=== PATIENT | male | born 1995 | race African-American/Black ===

== ENCOUNTER 2019-01-03 02:14 | Emergency (ER) | payer OTHER ==
[~2019-01-03] VITALS: Ht 185.4 cm; Wt 65.0 kg
--- NOTE | 2019-01-03 03:35 | REPVR ---
PROCEDURE INFORMATION: Exam: CT Maxillofacial Without Contrast Exam date and time: 01/03/2019 2:41 AM Clinical history: 23 years old, male; Injury or trauma; Fall; Initial encounter; Blunt trauma (contusions or hematomas); Orbit/periorbital; Left; Additional info: Tr TECHNIQUE: Imaging protocol: Computed tomography images of the face without contrast. Radiation optimization: All CT scans at this facility use at least one of these dose optimization techniques: automated exposure control; mA and/or kV adjustment per patient size (includes targeted exams where dose is matched to clinical indication); or iterative reconstruction. COMPARISON: No relevant prior studies available. FINDINGS: Orbits: Orbits are normal. Globes are unremarkable. Sinuses: Very minimal bilateral maxillary sinus mucosal thickening. Bones/joints: Slightly offset left nasal bone fracture. Soft tissues: Slight soft tissue swelling along the lateral aspect of the left orbit with laceration. Minimal gas along the left inferior orbital rim with slight soft tissue swelling. Slight soft tissue swelling of the left aspect of the nose. IMPRESSION: 1. Mild soft tissue swelling of the left aspect of the nose and slight soft tissue swelling of the inferior lateral aspect of the left orbit. 2. Laceration along the lateral aspect of the left orbit and minimal gas extending along the inferior aspect of the left orbit consistent with laceration and/or puncture wound. 3. Slightly displaced fracture of the left nasal bones. 4. Very minimal bilateral maxillary sinus disease. Electronically signed by: Nicola Zuniga On 01/03/2019 03:34:49 AM
--- NOTE | 2019-01-03 03:36 | REPVR ---
PROCEDURE INFORMATION: Exam: CT Cervical Spine Without Contrast Exam date and time: 01/03/2019 2:41 AM Clinical history: 23 years old, male; Injury or trauma; Fall; Initial encounter; Blunt trauma; Additional info: Fall hitting face TECHNIQUE: Imaging protocol: Computed tomography images of the cervical spine without contrast. Radiation optimization: All CT scans at this facility use at least one of these dose optimization techniques: automated exposure control; mA and/or kV adjustment per patient size (includes targeted exams where dose is matched to clinical indication); or iterative reconstruction. COMPARISON: No relevant prior studies available. FINDINGS: Vertebrae: No acute fracture. Normal alignment. Discs/Spinal canal/Neural foramina: No spinal stenosis. No neural foraminal narrowing. Soft tissues: Unremarkable. Lungs: Lung apices are normal. IMPRESSION: Negative CT cervical spine. No fracture or subluxation is evident and no spinal or foraminal stenosis. Electronically signed by: Nicola Zuniga On 01/03/2019 03:36:36 AM
--- NOTE | 2019-01-03 03:38 | REPVR ---
PROCEDURE INFORMATION: Exam: CT Head Without Contrast Exam date and time: 01/03/2019 2:41 AM Clinical history: 23 years old, male; Injury or trauma; Fall; Initial encounter; Blunt trauma (contusions or hematomas); Consciousness not specified; Additional info: Fall hitting face TECHNIQUE: Imaging protocol: Computed tomography of the head without contrast. Radiation optimization: All CT scans at this facility use at least one of these dose optimization techniques: automated exposure control; mA and/or kV adjustment per patient size (includes targeted exams where dose is matched to clinical indication); or iterative reconstruction. COMPARISON: No relevant prior studies available. FINDINGS: Brain: Normal. No hemorrhage. Unremarkable white matter. No mass effect. Ventricles: Normal. No ventriculomegaly. Bones/joints: Unremarkable. No acute fracture. Sinuses: Visualized sinuses are unremarkable. No fluid levels. Mastoid air cells: Visualized mastoid air cells are well aerated. Soft tissues: Laceration along the lateral aspect of the left orbit with slight soft tissue swelling. IMPRESSION: 1. Laceration or wound along the lateral aspect of the left orbit. 2. Otherwise negative noncontrast head CT. Electronically signed by: Nicola Zuniga On 01/03/2019 03:38:16 AM
[2019-01-03] MEDS ORDERED: LIDOCAINE W/EPINEPHRINE 1% 20ML VIAL SC ONE (04:00)
[2019-01-03 04:30] VITALS: BP 128/71
== END 2019-01-03 04:32 | disposition home or self-care (01) ==
LOC: M ED 02:14
DX: S02.2XXA Fracture of nasal bones, initial encounter for closed fracture (principal); S01.412A Laceration without foreign body of left cheek and temporomandibular area, initial encounter; W19.XXXA Unspecified fall, initial encounter; Y92.89 Other specified places as the place of occurrence of the external cause; Y93.9 Activity, unspecified; Y99.9 Unspecified external cause status

== ENCOUNTER 2019-07-25 12:32 | Emergency (ER) | payer OTHER ==
[~2019-07-25] VITALS: Ht 185.4 cm; Wt 68.6 kg
[2019-07-25 12:33] VITALS: BP 119/57
[2019-07-25] MEDS ORDERED: MAPA500T2 PO (12:42)
[2019-07-25] MEDS ORDERED: MAGIC MOUTHWASH SUSPENSION BTL SS STA (12:56)
[2019-07-25] MEDS ORDERED: AMOXICILLIN 500 MG CAP PO ONE (13:00)
[2019-07-25] MEDS ORDERED: IBUPROFEN 800 MG TAB PO ONE (13:00)
[2019-07-25] MEDS ORDERED: AMOX500C PO (13:34)
[2019-07-25] MEDS ORDERED: MAGICMW SSP (13:34)
[2019-07-26] MEDS ORDERED: PRED20TA PO (21:38)
== END 2019-07-25 13:39 | disposition home or self-care (01) ==
LOC: M ED 12:32
DX: J02.0 Streptococcal pharyngitis (principal); R51 Headache

== ENCOUNTER 2019-07-26 17:25 | Emergency (ER) | payer OTHER ==
[~2019-07-26] VITALS: Ht 185.4 cm; Wt 67.6 kg
[~2019-07-26 17:25] MED LIST: AMOX500C PO; MAGICMW SSP; MAPA500T2 PO
[2019-07-26] MEDS ORDERED: NS 1,000 ML IV ONE (18:00)
[2019-07-26] MEDS ORDERED: ONDANSETRON 4MG/2ML VIAL IV ONE (18:00)
[2019-07-26 18:29] LABS: BASO % 0.1 % (0.0-1.0); HEMATOCRIT 38.6 % (42.0-52.0); HEMOGLOBIN 12.7 g/dl (13.5-17.5); LYMPH % 7.6 % (24.0-44.0); MEAN CORPUSCULAR HEMOGLOBIN 27.9 pg (27.0-33.0); MEAN CORPUSCULAR HGB CONC 32.9 g/dl (32.0-36.5); MEAN CORPUSCULAR VOLUME 84.6 fl (80.0-96.0); MONO # 2.4 10^3/uL (0.0-0.8); MONO % 18.2 % (0.0-5.0); NEUTROPHILS # 9.9 10^3/uL (1.5-8.5); NEUTROPHILS % 73.7 % (36.0-66.0); PLATELET COUNT, AUTOMATED 200 10^3/uL (150-450); RED BLOOD COUNT 4.56 10^6/uL (4.30-6.10); WHITE BLOOD COUNT 13.4 10^3/uL (4.0-10.0)
[2019-07-26] MEDS ORDERED: dexameTHASONE 20MG/5ML VIAL (J1100 PER 1MG) IV ONE (18:30)
[2019-07-26 18:49] LABS: ERYTHROCYTE SEDIMENTATION RATE 40 mm/hr (0-15)
[2019-07-26 19:01] LABS: ALBUMIN 3.3 GM/DL (3.2-5.2); ALT/SGPT 19 U/L (12-78); BILIRUBIN,DIRECT 0.3 MG/DL (0.0-0.2); BLOOD UREA NITROGEN 13 MG/DL (7-18); CALCIUM LEVEL 8.5 MG/DL (8.5-10.1); CARBON DIOXIDE LEVEL 28 MEQ/L (21-32); CHLORIDE LEVEL 97 MEQ/L (98-107); CREATININE FOR GFR 1.29 MG/DL (0.70-1.30); GLOMERULAR FILTRATION RATE > 60.0 (>60); GLUCOSE, FASTING 92 MG/DL (70-100); LIPASE 100 U/L (73-393); POTASSIUM SERUM 3.9 MEQ/L (3.5-5.1); SODIUM LEVEL 134 MEQ/L (136-145); TOTAL PROTEIN 7.6 GM/DL (6.4-8.2)
[2019-07-26 19:04] LABS: MONO REFLEX EBV COMP NEGATIVE (NEGATIVE)
[2019-07-26] MEDS ORDERED: ISOVUE-370 76% 100ML VIAL As Ordered ONE (19:28)
--- NOTE | 2019-07-26 19:50 | REPVR ---
PROCEDURE INFORMATION: Exam: CT Neck With Contrast Exam date and time: 07/26/2019 7:38 PM Age: 23 years old Clinical indication: Mass, lump, or swelling in neck; Additional info: Severely swollen tonsills, swelling down into neck TECHNIQUE: Imaging protocol: Computed tomography images of the neck with intravenous contrast. Radiation optimization: All CT scans at this facility use at least one of these dose optimization techniques: automated exposure control; mA and/or kV adjustment per patient size (includes targeted exams where dose is matched to clinical indication); or iterative reconstruction. Contrast material: ISOVUE 370; Contrast volume: 75 ml; Contrast route: IV; COMPARISON: CT Spine,cervical w/o contrast 01/03/2019 2:40 AM FINDINGS: Nasopharynx: Nasopharyngeal and oropharyngeal mucosal enhancement. Oropharynx: There is enlargement and enhancement involving the bilateral palatine tonsils. Hypopharynx: Unremarkable. Larynx: Unremarkable. Normal epiglottis. Retropharyngeal space: Unremarkable. Submandibular/Parotid glands: Normal. Glands are normal in size. Thyroid: Normal. No enlarged or calcified nodules. Lymph nodes: Mild cervical lymphadenopathy, likely reactive. Trachea: Visualized trachea is unremarkable. Lungs: Mild scarring at the lung apices. Bones/joints: Unremarkable. No acute fracture. Soft tissues: No drainable fluid collection. IMPRESSION: 1. Findings compatible tonsillitis and pharyngitis. 2. No drainable fluid collection. Electronically signed by: Ibrahima Linder On 07/26/2019 19:49:41 PM
[2019-07-26] MEDS ORDERED: KETOROLAC 30 MG/ML 1ML VIAL IV ONE (20:00)
[2019-07-26] MEDS ORDERED: CLINDAMYCIN 900 MG in IV 1 EA IV ONE (21:00)
[2019-07-26] MEDS ORDERED: ACETAMINOPHEN 500 MG TAB PO ONE (21:00)
--- NOTE | 2019-07-26 21:09 | REPVR ---
PROCEDURE INFORMATION: Exam: US Abdomen Complete Exam date and time: 07/26/2019 8:43 PM Age: 23 years old Clinical indication: Nausea and vomiting; Additional info: Hepatosplenomegaly, n/v TECHNIQUE: Imaging protocol: Real-time ultrasound of the abdomen with image documentation. COMPARISON: No relevant prior studies available. FINDINGS: Liver: No focal abnormality involving the liver. The liver is not discretely measured. Gallbladder: Gallbladder is partially contracted. No definite calculi or pathologic thickening. Common bile duct: Common bile duct is normal caliber. Pancreas: No focal abnormality involving the visualized portions of the pancreas. Right kidney: Normal. No mass. No hydronephrosis. Left kidney: Normal. No mass. No hydronephrosis. Spleen: Spleen measures up to 9.2 centimetres. No focal abnormality involving the spleen. Aorta: Visualized abdominal aorta is nonaneurysmal. Inferior vena cava: Normal. IMPRESSION: Unremarkable abdominal ultrasound. Electronically signed by: Ibrahima Linder On 07/26/2019 21:08:50 PM
[2019-07-26 21:10] VITALS: BP 121/58
[2019-07-26] MEDS ORDERED: PRED20TA PO (21:38)
--- NOTE | 2019-07-27 10:13 | REP ---
Clinical: Hemoptysis . Comparison: None . Technique: PA and lateral. Findings: The mediastinum and cardiac silhouette are normal. The lung goodwin are clear and without acute consolidation, effusion, or pneumothorax. The skeletal structures are intact and normal. Impression: 1. No acute cardiopulmonary process. Electronically Signed by Milton Jenkins MD 07/27/2019 10:04 A
[2019-07-29 16:07] LABS: EBV AB TO NUCLEAR ANTIGEN >600.0 U/mL (0.0-17.9); EBV VIRAL CAPSID AG IgG 77.2 U/mL (0.0-17.9); EBV VIRAL CAPSID AG IgM <36.0 U/mL (0.0-35.9)
== END 2019-07-26 21:52 | disposition home or self-care (01) ==
LOC: M ED 17:25
DX: J02.0 Streptococcal pharyngitis (principal); R11.2 Nausea with vomiting, unspecified; R50.9 Fever, unspecified
CPT/HCPCS: 70491; 71046; 76700; 80048; 80076; 83605; 83690; 85025; 85652; 86140; 86308; 86664; 86665; 87040; 94760; 96361; 96365; 96375; 99284; J1100; J1885; J2405; Q9967

== ENCOUNTER 2020-06-02 20:35 | Emergency (ER) | payer OTHER ==
[~2020-06-02] VITALS: Ht 180.3 cm; Wt 98.2 kg
[2020-06-02 20:35] VITALS: BP 113/81
[~2020-06-02 20:35] MED LIST changes: +PRED20TA PO
== END 2020-06-02 21:25 | disposition home or self-care (01) ==
LOC: M ED 20:35
DX: Z04.1 Encounter for examination and observation following transport accident (principal)